=== PATIENT | male | born 1970 | race Caucasian/White ===

== ENCOUNTER 2017-06-28 08:46 | Emergency (ER) | payer OTHER ==
[2017-06-28 08:52] VITALS: TEMP 97.4
[2017-06-28] MEDS ORDERED: SODIUM CHLORIDE 0.9% 1,000 ML IV STA (08:59)
[2017-06-28] MEDS ORDERED: KETOROLAC 30 MG/ML 1 ML VIAL IVP STA (09:06)
--- NOTE | 2017-06-28 09:09 | ED ---
Abdominal Pain HPI - General Chief Complaint: Abdominal Pain Stated Complaint: URQ PAIN Time Seen by Provider: 06/28/17 08:59 Source: patient, RN notes reviewed Mode of arrival: ambulatory Limitations: no limitations - History of Present Illness Initial Comments: This a 47-year-old male presents emergency Department with complaints of right upper quadrant abdominal pain, epigastric pain. States over the last 3 days he has had worsening symptoms. He has been told by Dr. Chavez in the past that he has a bad gallbladder based on the HIDA scan. Patient patient states that he saw his primary care physician Dr. Rodriguez yesterday who scheduled for ultrasound, lab work. Patient states he cannot tolerate the symptoms any more so he decided to come to the emergency Department. Patient states that he's had no prior abdominal surgery. He does admit that he has an appointment tomorrow with Dr. Chavez. Patient denies any known fever, chills he's had some intermittent nausea and anorexia. Patient denies any diarrhea or constipation. Denies chest pain or shortness of breath. - Related Data Home Medications Medication Instructions Recorded Confirmed Acetaminophen [Tylenol 8 Hour] 1,300 mg PO Q8H PRN 06/28/17 06/28/17 Previous Rx's Medication Instructions Recorded Hydrocodone/Acetaminophen [[place] 1 tab PO Q6HR PRN #12 tab 06/28/17 5-325] Ondansetron Odt [Zofran Odt] 4 mg PO Q8HR PRN #10 tab 06/28/17 Allergies Allergy/AdvReac Type Severity Reaction Status Date / Time hay AdvReac Itching Uncoded 06/28/17 08:52 Review of Systems ROS Statement: Those systems with pertinent positive or pertinent negative responses have been documented in the HPI. ROS Other: All systems not noted in ROS Statement are negative. Past Medical History Past Medical History: No Reported History Additional Past Medical History / Comment(s): TORN MENISCUS RIGHT KNEE, gallbladder problems History of Any Multi-Drug Resistant Organisms: None Reported Past Surgical History: Orthopedic Surgery, Tonsillectomy Additional Past Surgical History / Comment(s): WISDOM TEETH. ARTHROSCOPY bilateral knees Past Anesthesia/Blood Transfusion Reactions: No Reported Reaction Past Psychological History: No Psychological Hx Reported Smoking Status: Never smoker Past Alcohol Use History: Occasional Past Drug Use History: None Reported General Exam Limitations: no limitations General appearance: alert, in no apparent distress Head exam: Present: atraumatic, normocephalic, normal inspection Eye exam: Present: normal appearance, PERRL, EOMI. Absent: scleral icterus, conjunctival injection, periorbital swelling ENT exam: Present: normal exam, normal oropharynx, mucous membranes moist Neck exam: Present: normal inspection. Absent: tenderness, meningismus, lymphadenopathy Respiratory exam: Present: normal lung sounds bilaterally. Absent: respiratory distress, wheezes, rales, rhonchi, stridor Cardiovascular Exam: Present: regular rate, normal rhythm, normal heart sounds. Absent: systolic murmur, diastolic murmur, rubs, gallop, clicks GI/Abdominal exam: Present: soft, tenderness (Right upper quadrant, epigastric tenderness moderate), normal bowel sounds. Absent: distended, guarding, rebound , rigid Back exam: Absent: CVA tenderness (R), CVA tenderness (L) Skin exam: Present: warm, dry, intact, normal color. Absent: rash Course Vital Signs 06/28/17 08:48 Temperature 97.4 F L Pulse Rate 75 Respiratory 18 Rate Blood Pressure 166/90 O2 Sat by Pulse 98 Oximetry - Reevaluation(s) Reevaluation #1: 06/28/17 11:14 Patient was updated and results states the pain is improved with Toradol. Medical Decision Making - Medical Decision Making 47-year-old male presents for lower quadrant abdominal pain. He has been told by his surgeon passive he has a dysfunctional gallbladder. Lab work and ultrasound was repeated today which was unremarkable. His pain is improved. Patient has also, appointment with Dr. Chavez. Patient will be treated with pain meds and nausea medication. - Lab Data Result diagrams: 06/28/17 09:00 06/28/17 09:00 Lab Results 06/28/17 06/28/17 06/28/17 Range/Units 09:00 09:00 09:00 WBC 10.5 (3.8-10.6) k/uL RBC 5.32 (4.30-5.90) m/uL Hgb 15.6 (13.0-17.5) gm/dL Hct 45.8 (39.0-53.0) % MCV 86.1 (80.0-100.0) fL MCH 29.3 (25.0-35.0) pg MCHC 34.1 (31.0-37.0) g/dL RDW 13.1 (11.5-15.5) % Plt Count 227 (150-450) k/uL Neutrophils % 79 % Lymphocytes % 12 % Monocytes % 6 % Eosinophils % 1 % Basophils % 0 % Neutrophils # 8.3 H (1.3-7.7) k/uL Lymphocytes # 1.3 (1.0-4.8) k/uL Monocytes # 0.7 (0-1.0) k/uL Eosinophils # 0.2 (0-0.7) k/uL Basophils # 0.0 (0-0.2) k/uL PT 9.8 (9.0-12.0) sec INR 1.0 (<1.2) APTT 23.7 (22.0-30.0) sec Sodium 143 (137-145) mmol/L Potassium 4.9 (3.5-5.1) mmol/L Chloride 102 (98-107) mmol/L Carbon Dioxide 30 (22-30) mmol/L Anion Gap 11 mmol/L BUN 12 (9-20) mg/dL Creatinine 0.87 (0.66-1.25) mg/dL Est GFR (CKD-EPI)AfAm >90 (>60 ml/min/1.73 sqM) Est GFR (CKD-EPI)NonAf >90 (>60 ml/min/1.73 sqM) Glucose 99 (74-99) mg/dL Calcium 9.3 (8.4-10.2) mg/dL Total Bilirubin 1.0 (0.2-1.3) mg/dL AST 34 (17-59) U/L ALT 57 (21-72) U/L Alkaline Phosphatase 94 (38-126) U/L Total Protein 7.4 (6.3-8.2) g/dL Albumin 4.5 (3.5-5.0) g/dL Amylase 40 (30-110) U/L Lipase 76 (23-300) U/L Urine Color Urine Appearance (Clear) Urine pH (5.0-8.0) Ur Specific [place] (1.001-1.035) Urine Protein (Negative) Urine Glucose (UA) (Negative) Urine Ketones (Negative) Urine Blood (Negative) Urine Nitrite (Negative) Urine Bilirubin (Negative) Urine Urobilinogen (<2.0) mg/dL Ur Leukocyte Esterase (Negative) 06/28/17 Range/Units 09:00 WBC (3.8-10.6) k/uL RBC (4.30-5.90) m/uL Hgb (13.0-17.5) gm/dL Hct (39.0-53.0) % MCV (80.0-100.0) fL MCH (25.0-35.0) pg MCHC (31.0-37.0) g/dL RDW (11.5-15.5) % Plt Count (150-450) k/uL Neutrophils % % Lymphocytes % % Monocytes % % Eosinophils % % Basophils % % Neutrophils # (1.3-7.7) k/uL Lymphocytes # (1.0-4.8) k/uL Monocytes # (0-1.0) k/uL Eosinophils # (0-0.7) k/uL Basophils # (0-0.2) k/uL PT (9.0-12.0) sec INR (<1.2) APTT (22.0-30.0) sec Sodium (137-145) mmol/L Potassium (3.5-5.1) mmol/L Chloride (98-107) mmol/L Carbon Dioxide (22-30) mmol/L Anion Gap mmol/L BUN (9-20) mg/dL Creatinine (0.66-1.25) mg/dL Est GFR (CKD-EPI)AfAm (>60 ml/min/1.73 sqM) Est GFR (CKD-EPI)NonAf (>60 ml/min/1.73 sqM) Glucose (74-99) mg/dL Calcium (8.4-10.2) mg/dL Total Bilirubin (0.2-1.3) mg/dL AST (17-59) U/L ALT (21-72) U/L Alkaline Phosphatase (38-126) U/L Total Protein (6.3-8.2) g/dL Albumin (3.5-5.0) g/dL Amylase (30-110) U/L Lipase (23-300) U/L Urine Color Yellow Urine Appearance Clear (Clear) Urine pH 7.5 (5.0-8.0) Ur Specific [place] 1.024 (1.001-1.035) Urine Protein Trace H (Negative) Urine Glucose (UA) Negative (Negative) Urine Ketones Negative (Negative) Urine Blood Negative (Negative) Urine Nitrite Negative (Negative) Urine Bilirubin Negative (Negative) Urine Urobilinogen <2.0 (<2.0) mg/dL Ur Leukocyte Esterase Negative (Negative) Disposition Clinical Impression: Abdominal pain, Biliary colic symptom Disposition: HOME SELF-CARE Condition: Stable Instructions: Abdominal Pain (ED) Additional Instructions: Please return to the Emergency Department if symptoms worsen or any other concerns. Prescriptions: Hydrocodone/Acetaminophen [[place] 5-325] 1 tab PO Q6HR PRN #12 tab PRN Reason: Pain Ondansetron Odt [Zofran Odt] 4 mg PO Q8HR PRN #10 tab PRN Reason: Nausea Is patient prescribed a controlled substance at d/c from ED?: Yes If prescribed controlled substance>3 days was MAPS reviewed?: No When asked, does pt state using other controlled substances?: No Referrals: Zackery Rodriguez DO [Primary Care Provider] - 1-2 days Time of Disposition: 11:16
[2017-06-28 09:23] LABS: Basophils % (A) 0 %; Eosinophils # (A) 0.2 k/uL (0-0.7); Eosinophils % (A) 1 %; HCT 45.8 % (39.0-53.0); HGB 15.6 gm/dL (13.0-17.5); Lymphocytes # (A) 1.3 k/uL (1.0-4.8); Lymphocytes % (A) 12 %; MCH 29.3 pg (25.0-35.0); MCHC 34.1 g/dL (31.0-37.0); MCV 86.1 fL (80.0-100.0); Mean Platelet Volume 7.9; Monocytes # (A) 0.7 k/uL (0-1.0); Monocytes % (A) 6 %; Neutrophils # (A) 8.3 k/uL (1.3-7.7); Neutrophils % (A) 79 %; Platelet Count 227 k/uL (150-450); RBC 5.32 m/uL (4.30-5.90); RDW 13.1 % (11.5-15.5); WBC 10.5 k/uL (3.8-10.6)
[2017-06-28 09:32] LABS: ALT 57 U/L (21-72); AST 34 U/L (17-59); Albumin 4.5 g/dL (3.5-5.0); Alkaline Phosphatase 94 U/L (38-126); Amylase 40 U/L (30-110); Anion Gap 11 mmol/L; Blood Urea Nitrogen 12 mg/dL (9-20); Calcium 9.3 mg/dL (8.4-10.2); Carbon Dioxide 30 mmol/L (22-30); Chloride 102 mmol/L (98-107); Glucose 99 mg/dL (74-99); Lipase 76 U/L (23-300); Potassium 4.9 mmol/L (3.5-5.1); Sodium 143 mmol/L (137-145); Total Protein 7.4 g/dL (6.3-8.2)
[2017-06-28 09:41] LABS: Partial Thromboplastin Time 23.7 sec (22.0-30.0); Prothrombin Time 9.8 sec (9.0-12.0)
[2017-06-28 10:22] LABS: Appearance,Urine Clear (Clear); Bilirubin,Urine Negative (Negative); Blood,Urine Negative (Negative); Color,Urine Yellow; Glucose,Urine (UA) Negative (Negative); Ketones,Urine Negative (Negative); Leukocyte Esterase,Urine Negative (Negative); Nitrite,Urine Negative (Negative); PH, Urine 7.5 (5.0-8.0); Protein,Urine Trace (Negative); Specific Gravity,Urine 1.024 (1.001-1.035); Urobilinogen,Urine <2.0 mg/dL (<2.0)
--- NOTE | 2017-06-28 11:05 | US ---
EXAMINATION TYPE: US gallbladder DATE OF EXAM: 06/28/2017 COMPARISON: 08/11/2015 CLINICAL HISTORY: Pain; EC patient with severe epigastric pain x 2 days; ate Tacos for dinner last ni ght; low ejection fraction per NM study 2016. EXAM MEASUREMENTS: Liver Length: 15.6 cm Gallbladder Wall: 0.2 cm CBD: 0.6 cm Right Kidney: 9.2 x 5.5 x 4.1 cm Pancreas: Obscured by bowel gas Liver: no masses seen, decreased visualization due to overlying bowel gas Gallbladder: wnl Evidence for sonographic Sauceda's sign: Yes CBD: wnl Right Kidney: No hydronephrosis or masses seen IMPRESSION: Somewhat Limited exam demonstrates no diagnostic evidence of gallstones or gallbladder wa ll thickening.
[2017-06-28 12:04] VITALS: BP 119/56; PULSE 66; RESP 16
== END 2017-06-28 12:04 | disposition home or self-care (01) ==
LOC: EC 08:46
DX: R10.11 Right upper quadrant pain (principal); R10.13 Epigastric pain; R11.0 Nausea; Z91.09 Other allergy status, other than to drugs and biological substances
CPT/HCPCS: 99284; 96374; 96361; 36415; 80053; 82150; 83690; 85025; 85610; 85730; 81003; 76705; J1885

== ENCOUNTER 2017-06-30 10:41 | Day surgery (SDC) | payer OTHER ==
[2017-06-30] MEDS ORDERED: LACTATED RINGERS 1,000 ML IV SCH (11:21)
[2017-06-30 11:25] VITALS: TEMP 98.3
[2017-06-30] MEDS ORDERED: PROPOFOL 10 MG/ML 20 ML VIAL IV ONE (11:41)
[2017-06-30] MEDS ORDERED: LIDOCAINE 1% 20 ML VIAL (10MG/ML) FOR IV START INTRADERMA ONE (11:41)
[2017-06-30] MEDS ORDERED: LIDOCAINE 1% INJ 10MG/ML (20 ML MDV) ONE (11:41)
--- NOTE | 2017-06-30 11:44 | P.GSHP ---
History of Present Illness H&P Date: 06/30/17 Chief Complaint: Epigastric and right upper quadrant pain This a 47-year-old male who's had complaints of epigastric quadrant pain. He presents today for EGD to evaluate for gastritis. Past Medical History Past Medical History: No Reported History Additional Past Medical History / Comment(s): TORN MENISCUS RIGHT KNEE, gallbladder problems History of Any Multi-Drug Resistant Organisms: None Reported Past Surgical History: Orthopedic Surgery, Tonsillectomy Additional Past Surgical History / Comment(s): WISDOM TEETH. ARTHROSCOPY bilateral knees Past Anesthesia/Blood Transfusion Reactions: No Reported Reaction Past Psychological History: No Psychological Hx Reported Smoking Status: Never smoker Past Alcohol Use History: Occasional Past Drug Use History: None Reported Medications and Allergies Home Medications Medication Instructions Recorded Confirmed Type Hydrocodone/Acetaminophen [[place] 1 tab PO Q6HR PRN #12 tab 06/28/17 06/30/17 Rx 5-325] Ondansetron Odt [Zofran Odt] 4 mg PO Q8HR PRN #10 tab 06/28/17 06/30/17 Rx Allergies Allergy/AdvReac Type Severity Reaction Status Date / Time hay AdvReac Itching Uncoded 06/30/17 11:24 Surgical - Exam Vital Signs Temp Pulse Resp BP Pulse Ox 98.3 F 74 16 147/77 98 06/30/17 11:22 06/30/17 11:22 06/30/17 11:22 06/30/17 11:22 06/30/17 11:22 - General well developed, no distress - Eyes PERRL - ENT normal pinna - Neck no masses - Respiratory normal expansion - Cardiovascular Rhythm: regular - Abdomen Epigastric pain Abdomen: soft Assessment and Plan Assessment: Epigastric pain. We'll perform EGD.
--- NOTE | 2017-06-30 11:51 | P.OP ---
Date of Procedure: 06/30/17 Preoperative Diagnosis: GERD Postoperative Diagnosis: Antral gastritis Hiatal hernia Esophagitis Procedure(s) Performed: EGD Anesthesia: MAC Surgeon: Marcin Chavez Pathology: other (Antrum, esophagus) Condition: stable Disposition: PACU Description of Procedure: The patient's placed on the endoscopy table in the lateral position. He received IV sedation. The gastric was placed oropharynx passed in the esophagus and into the stomach. Scope was then placed through the pylorus. The first and second portion of the duodenum appeared normal. Scope was then brought back the antrum this is mildly inflamed and a biopsies was performed. The scope was then retroflexed and remainder the stomach appeared normal. There was a moderate size hiatal hernia. The GE junction was at 40 cm. The distal esophagus was mildly inflamed and a biopsies performed. The proximal esophagus appeared normal. Scope was withdrawn for patient.
[2017-06-30 12:02] VITALS: RESP 18
[2017-06-30 12:34] VITALS: BP 127/83; PULSE 72
== END 2017-06-30 12:53 | disposition home or self-care (01) ==
LOC: ORWHC2ENDO 10:41
PROVIDERS: ATTEND Surgery
DX: K29.50 Unspecified chronic gastritis without bleeding (principal); K21.0 Gastro-esophageal reflux disease with esophagitis; K44.9 Diaphragmatic hernia without obstruction or gangrene
CPT/HCPCS: 88305; 43239; J2001; J2704

== ENCOUNTER 2017-07-03 07:47 | Day surgery (SDC) | payer OTHER ==
[2017-06-30 11:50] VITALS: BMI 29.7
[~2017-07-03 07:47] MED LIST: HEPARIN SODIUM,PORCINE 5,000 UNIT/ML 1 ML VIAL SQ ONE
[2017-07-03] MEDS ORDERED: BUPIVACAINE (PF) 0.25% 30 ML VIAL SQ ONE ×2 (08:16→09:26)
[2017-07-03] MEDS: ceFAZolin IN SWFI 2 GM/20 ML SYRINGE IVP ONE ×2 (08:16→09:20)
[2017-07-03] MEDS ORDERED: LACTATED RINGERS 1,000 ML IV ONE ×3 (08:16→11:00)
[2017-07-03] MEDS ORDERED: HYDROmorphone 0.5 MG/0.5 ML SYRINGE IVP PRN (08:36)
[2017-07-03] MEDS ORDERED: DEXAMETHASONE SOD PHOSPHATE 10 MG/ML 1 ML VIAL IV ONE (08:36)
[2017-07-03] MEDS ORDERED: LIDOCAINE 1% 20 ML VIAL (10MG/ML) FOR IV START INTRADERMA PRN (08:36)
[2017-07-03] MEDS ORDERED: MORPHINE SULFATE 2 MG/ML SYRINGE IV PRN (08:36)
[2017-07-03] MEDS ORDERED: SCOPOLAMINE 1.5MG/72HR PATCH TRANSDERM ONE (08:36)
[2017-07-03] MEDS ORDERED: ONDANSETRON ODT 4 MG TAB PO ONE (08:36)
[2017-07-03] MEDS ORDERED: MIDAZOLAM 2 MG/2 ML VIAL IV PRN (08:36)
[2017-07-03] MEDS ORDERED: LACTATED RINGERS 1,000 ML IV SCH (08:45)
--- NOTE | 2017-07-03 08:45 | P.GSHP ---
History of Present Illness H&P Date: 07/03/17 Chief Complaint: Right upper quadrant pain This is a 47-year-old male referred from Dr. Rodriguez. Patient's complaints of right upper quadrant pain. His recent HIDA scan showed abnormal ejection fraction consistent with chronic cholecystitis. He presents today for laparoscopic cholecystectomy. Past Medical History Past Medical History: No Reported History Additional Past Medical History / Comment(s): TORN MENISCUS RIGHT KNEE, gallbladder problems History of Any Multi-Drug Resistant Organisms: None Reported Past Surgical History: Orthopedic Surgery, Tonsillectomy Additional Past Surgical History / Comment(s): WISDOM TEETH. ARTHROSCOPY bilateral knees Past Anesthesia/Blood Transfusion Reactions: No Reported Reaction Additional Past Anesthesia/Blood Transfusion Reaction / Comment(s): PTS MOTHER= CONFUSION WITH ANESTHESIA Past Psychological History: No Psychological Hx Reported Smoking Status: Never smoker Past Alcohol Use History: Occasional Past Drug Use History: None Reported - Past Family History Mother Family Medical History: No Reported History Medications and Allergies Home Medications Medication Instructions Recorded Confirmed Type Hydrocodone/Acetaminophen [[place] 1 tab PO Q6HR PRN #12 tab 06/28/17 07/03/17 Rx 5-325] Ondansetron Odt [Zofran Odt] 4 mg PO Q8HR PRN #10 tab 06/28/17 07/03/17 Rx Losartan [Cozaar] 50 mg PO DAILY 06/30/17 07/03/17 History Allergies Allergy/AdvReac Type Severity Reaction Status Date / Time hay AdvReac Itching Uncoded 07/03/17 08:27 Surgical - Exam Vital Signs Temp Pulse BP Pulse Ox 97.8 F 60 134/78 98 07/03/17 08:28 07/03/17 08:28 07/03/17 08:28 07/03/17 08:28 - General well developed, no distress - Eyes PERRL - ENT normal pinna - Neck no masses - Respiratory normal expansion - Cardiovascular Rhythm: regular - Abdomen Abdomen: soft, non tender Assessment and Plan Assessment: Chronic cholecystitis. We'll perform laparoscopic cholecystectomy
[2017-07-03] MEDS ORDERED: ONDANSETRON 4 MG/2 ML VIAL IVP ONE ×2 (08:47→10:13)
[2017-07-03] MEDS ORDERED: fentaNYL (PF) 50 MCG/ML 2 ML AMP ONE (09:07)
[2017-07-03] MEDS ORDERED: SUCCINYLCHOLINE CHLORIDE 100 MG/5 ML SYR IV ONE (09:07)
[2017-07-03] MEDS ORDERED: MIDAZOLAM 2 MG/2 ML VIAL ONE (09:07)
[2017-07-03] MEDS ORDERED: ROCURONIUM BROMIDE 10 MG/ML 10 ML VIAL IV ONE (09:07)
[2017-07-03] MEDS ORDERED: GLYCOPYRROLATE 0.2 MG/ML 2 ML VIAL ONE (09:07)
[2017-07-03] MEDS ORDERED: LIDOCAINE 1% INJ 10MG/ML (20 ML MDV) ONE (09:07)
[2017-07-03] MEDS ORDERED: PROPOFOL 10 MG/ML 20 ML VIAL IV ONE (09:07)
[2017-07-03] MEDS ORDERED: NEOSTIGMINE 1 MG/ML 10 ML VIAL ONE (09:07)
[2017-07-03 10:06] VITALS: TEMP 97.2
[2017-07-03] MEDS ORDERED: MORPHINE SULFATE 4 MG/0.8 ML SYRINGE (INJ) IVP ONE (10:14)
[2017-07-03] MEDS ORDERED: fentaNYL (PF) 50 MCG/ML 2 ML AMP IVP ONE ×2 (10:20→10:27)
[2017-07-03] MEDS ORDERED: diphenhydrAMINE 50 MG/ML 1 ML VIAL IVP ONE ×2 (10:28→11:26)
--- NOTE | 2017-07-03 10:33 | P.OP ---
Date of Procedure: 07/03/17 Preoperative Diagnosis: Chronic cholecystitis Postoperative Diagnosis: Chronic cholecystitis Omental infarct Procedure(s) Performed: Laparoscopic cholecystectomy Partial omentectomy Anesthesia: ELIANA Surgeon: Marcin Chavez Estimated Blood Loss (ml): 5 Pathology: other (Gallbladder, omentum) Condition: stable Disposition: PACU Description of Procedure: The patient was placed on the operating table. The patient received a general endotracheal tube anesthesia. The patients abdomen was prepped and draped in the usual sterile fashion. Through an infraumbilical stab incision, the fascia of the anterior abdominal wall was grasped with a pair of Kochers and then the Veress needle was placed in the peritoneal cavity. Position of the Veress needle was confirmed with positive drop test. The abdomen was then insufflated. After adequate insufflation, the 10 mm trocar was placed in the peritoneal cavity. Following this the laparoscope was placed in the peritoneal cavity. The patient was placed in the head-up, right side up position and then a 5 mm trocar was placed in the right lateral and right subcostal position under direct visualization. A 8 mm trocar was placed in the epigastric position. There was a portion of omentum which appeared to be twisted and nonviable and stomach to the falciform ligament. This was dissected with the Harmonic scissors and transected. The omentum was then placed in Endo Catch and brought out through the epigastric port site. The gallbladder was grasped in the fundus and infundibulum. Traction on the gallbladder was placed in the lateral and the cephalad positions. The triangle of Calot was visualized.. The cystic duct was bluntly dissected until the union of the cystic duct and common bile duct was seen. The cystic duct was then divided and sealed with the Harmonic scissors. A PDS Endoloop was then placed throughout the cystic duct stump. The cystic artery divided and sealed with the Harmonic scissors. The gallbladder was then removed from the liver bed using Harmonic scissors. The gallbladder was then extracted through the epigastric port site. Operative field was checked for any bleeding spots and Harmonic scissors was used to coagulate the liver bed. The abdomen was irrigated. The trocars were removed. The skin was closed using interrupted 3- 0 Vicryl suture. Dermabond dressing were applied. The patient tolerated the procedure well.
[2017-07-03] MEDS ORDERED: HYDROcodone/APAP 5-325MG 1 EACH TAB PO ONE ×2 (12:12→12:15)
[2017-07-03 12:15] VITALS: RESP 16
[2017-07-03 12:51] VITALS: BP 150/83; PULSE 100
== END 2017-07-03 13:00 | disposition home or self-care (01) ==
LOC: OR 07:47
PROVIDERS: ATTEND Surgery
DX: K81.1 Chronic cholecystitis (principal); K82.8 Other specified diseases of gallbladder; K65.4 Sclerosing mesenteritis; I10 Essential (primary) hypertension; Z79.899 Other long term (current) drug therapy
CPT/HCPCS: 88304; 88305; 47562; J2250; J1200; J1644; J1100; J2710; J2405; J2001; J3010; J0330; J2704; J0690; J2270

== ENCOUNTER 2019-11-12 08:04 | Day surgery (SDC) | payer OTHER ==
[2019-11-07 15:51] VITALS: BMI 31.4
[~2019-11-12 08:04] MED LIST changes: -HEPARIN SODIUM,PORCINE 5,000 UNIT/ML 1 ML VIAL SQ ONE; +LACTATED RINGERS 1,000 ML IV SCH; +LIDOCAINE 1% (10MG/ML) FOR IV START INTRADERMA PRN
[2019-11-12 08:29] VITALS: RESP 16; TEMP 98.2
[2019-11-12] MEDS ORDERED: fentaNYL (PF) 50 MCG/ML 2 ML AMP ONE (08:40)
[2019-11-12] MEDS ORDERED: MIDAZOLAM 2 MG/2 ML VIAL ONE (08:40)
[2019-11-12] MEDS ORDERED: PROPOFOL 10 MG/ML 20 ML VIAL IV ONE (08:40)
--- NOTE | 2019-11-12 08:42 | P.GSHP ---
History of Present Illness H&P Date: 11/12/19 Chief Complaint: Colon cancer screening Patient here today for colonoscopy. Last colonoscopy 10 years ago. No complaints. No family history of colon cancer. Past Medical History Past Medical History: Hypertension Additional Past Medical History / Comment(s): hiatal hernia, History of Any Multi-Drug Resistant Organisms: None Reported Past Surgical History: Cholecystectomy, Orthopedic Surgery, Tonsillectomy Additional Past Surgical History / Comment(s): WISDOM TEETH. ARTHROSCOPY bilateral knees Past Anesthesia/Blood Transfusion Reactions: No Reported Reaction Smoking Status: Never smoker - Past Family History Mother Family Medical History: No Reported History Medications and Allergies Home Medications Medication Instructions Recorded Confirmed Type Losartan Potassium 100 mg PO QAM 11/07/19 11/12/19 History Tadalafil [Cialis] 20 mg PO DIRECTED PRN 11/07/19 11/12/19 History Allergies Allergy/AdvReac Type Severity Reaction Status Date / Time hay AdvReac Itching Uncoded 11/12/19 08:27 Surgical - Exam Vital Signs Temp Pulse Resp BP Pulse Ox 98.2 F 67 16 152/84 98 11/12/19 08:24 11/12/19 08:24 11/12/19 08:24 11/12/19 08:24 11/12/19 08:24 Physical exam: General: Well-developed, well-nourished HEENT: Normocephalic, sclerae nonicteric Abdomen: Nontender, nondistended Extremities: No edema Neuro: Alert and oriented Assessment and Plan (1) Colon cancer screening Narrative/Plan: Will proceed with colonoscopy at this time Current Visit: Yes Status: Acute Code(s): Z12.11 - ENCOUNTER FOR SCREENING FOR MALIGNANT NEOPLASM OF COLON SNOMED Code(s): 082464007
--- NOTE | 2019-11-12 08:55 | P.PCN ---
Date of Procedure: 11/12/19 Procedure(s) Performed: PREOPERATIVE DIAGNOSIS: Colon cancer screening POSTOPERATIVE DIAGNOSIS: Diverticulosis PROCEDURE: Colonoscopy ANESTHESIA: MAC SURGEON: Munir Aleman M.D. SPECIMENS: None ENDOSCOPIC PROCEDURE: The patient was placed on the endoscopy table in the left decubitus position. The Olympus colonoscope was inserted into the anus and passed under direct visualization to the base of the cecum. The appendiceal orifice was visualized. From that point the scope was slowly withdrawn inspe cting all surfaces carefully. There were no neoplastic inflammatory or polypoid lesions throughout the cecum, ascending, transverse, descending, sigmoid and rectum. There was mild left-sided diverticulosis noted. Digital rectal examination was normal. The patient was taken to the recovery room in stable condition per anesthesia guidelines. RECOMMENDATIONS: Increase fiber. Follow-up colonoscopy in 10 years.
[2019-11-12 09:19] VITALS: BP 132/84; PULSE 69
== END 2019-11-12 09:34 | disposition home or self-care (01) ==
LOC: ORWHC2ENDO 08:04
PROVIDERS: ATTEND Surgery
DX: Z12.11 Encounter for screening for malignant neoplasm of colon (principal); K57.30 Diverticulosis of large intestine without perforation or abscess without bleeding; I10 Essential (primary) hypertension; K44.9 Diaphragmatic hernia without obstruction or gangrene; Z90.49 Acquired absence of other specified parts of digestive tract; Z98.890 Other specified postprocedural states; Z90.89 Acquired absence of other organs; Z79.899 Other long term (current) drug therapy; Z91.09 Other allergy status, other than to drugs and biological substances
CPT/HCPCS: J2250; J3010; J2704; G0121

== ENCOUNTER → 2020-09-22 | Outpatient (CLI) | payer OTHER ==
--- NOTE | 2020-09-22 12:35 | XR ---
EXAMINATION TYPE: XR chest 2V DATE OF EXAM: 09/22/2020 COMPARISON: None INDICATION: Rib contusion right side TECHNIQUE: Frontal and lateral views of the chest are obtained. FINDINGS: The heart size is normal. The pulmonary vasculature is normal. The lungs are clear. No acute displaced fractures are evident. No pneumothorax is evident. IMPRESSION: 1. No acute pulmonary process. 2. No obvious rib abnormalities
== END | disposition home or self-care (01) ==
LOC: RADXRMAIN 12:03
PROVIDERS: ATTEND Family Medicine
DX: S20.211A Contusion of right front wall of thorax, initial encounter (principal)
CPT/HCPCS: 71046

== ENCOUNTER → 2020-12-15 | Outpatient (CLI) | payer OTHER ==
[2020-12-15 16:06] LABS: Basophils # (A) 0.1 k/uL (0-0.2); Basophils % (A) 1 %; Eosinophils # (A) 0.2 k/uL (0-0.7); Eosinophils % (A) 2 %; HCT 46.1 % (39.0-53.0); HGB 15.4 gm/dL (13.0-17.5); Lymphocytes # (A) 1.9 k/uL (1.0-4.8); Lymphocytes % (A) 19 %; MCH 29.7 pg (25.0-35.0); MCHC 33.3 g/dL (31.0-37.0); MCV 89.2 fL (80.0-100.0); Mean Platelet Volume 8.7; Monocytes # (A) 0.5 k/uL (0-1.0); Monocytes % (A) 5 %; Neutrophils # (A) 7.3 k/uL (1.3-7.7); Neutrophils % (A) 73 %; Platelet Count 224 k/uL (150-450); RBC 5.17 m/uL (4.30-5.90); RDW 12.5 % (11.5-15.5)
[2020-12-15 16:11] LABS: Prothrombin Time 10.8 sec (9.0-12.0)
[2020-12-15 16:14] LABS: Potassium 4.6 mmol/L (3.5-5.1)
== END | disposition home or self-care (01) ==
LOC: LABPAT 14:52
PROVIDERS: ATTEND Orthopaedic Surgery
DX: Z01.818 Encounter for other preprocedural examination (principal); M17.12 Unilateral primary osteoarthritis, left knee; Z22.322 Carrier or suspected carrier of Methicillin resistant Staphylococcus aureus
CPT/HCPCS: 36415; 80051; 85025; 85610; 93005

== ENCOUNTER → 2020-12-31 | Outpatient (CLI) | payer OTHER | END | disposition home or self-care (01) | LOC: LABPAT 14:41 | PROVIDERS: ATTEND Orthopaedic Surgery | DX: Z01.812 Encounter for preprocedural laboratory examination (principal); M17.12 Unilateral primary osteoarthritis, left knee | CPT/HCPCS: 87070 ==

== ENCOUNTER 2021-01-04 05:58 | Day surgery (SDC) | payer OTHER ==
[2020-12-31 10:52] VITALS: BMI 30.7
--- NOTE | 2021-01-03 16:44 | HP ---
HISTORY AND PHYSICAL DATE OF SURGERY: 01/04/2021 Claus Gomez is a 50-year-old gentleman seen with symptomatic left knee osteoarthritis, failing conservative treatment measures. After options were discussed, he elected to proceed with left total knee arthroplasty. Consent regarding the procedure was obtained. PAST MEDICAL HISTORY: Hypertension. PAST SURGICAL HISTORY: Left knee arthroscopy. DAILY MEDICATIONS: Losartan, Naprosyn. ALLERGIES: NONE. SOCIAL HISTORY: He denies tobacco use. PHYSICAL EVALUATION OF THE LEFT KNEE: His range of motion is negative 1/2 to 120 degrees. There is a mild effusion. Tenderness along the medial joint line. Crepitus along the medial patellofemoral compartments with range of motion. Pain with patellofemoral compression. Ligaments stable. Hip rotation without pain. Distal neurovascular exam is intact. RADIOGRAPHS: Radiographs of the left knee reveal severe osteoarthritic changes. IMPRESSION: 1. Left knee osteoarthritis. 2. Hypertension. PLAN: Left total knee arthroplasty. MMODL / IJN: [id number] /
[~2021-01-04 05:58] MED LIST changes: +ACETAMINOPHEN TAB 500 MG TAB PO PRN; -LACTATED RINGERS 1,000 ML IV SCH; -LIDOCAINE 1% (10MG/ML) FOR IV START INTRADERMA PRN; +MELOXICAM 7.5 MG TAB PO PRN; +TRANEXAMIC ACID 1,000 MG in SODIUM CHLORIDE 0.9% 100 ML IVPB PRN
[2021-01-04] MEDS ORDERED: MIDAZOLAM 2 MG/2 ML VIAL IV PRN (06:09)
[2021-01-04] MEDS ORDERED: ONDANSETRON 4 MG/2 ML VIAL IVP ONE ×2 (06:09)
[2021-01-04] MEDS ORDERED: LACTATED RINGERS 1,000 ML IV SCH (06:09)
[2021-01-04] MEDS ORDERED: DEXAMETHASONE SOD PHOSPHATE 4 MG/ML 1 ML VIAL IV ONE ×2 (06:09)
[2021-01-04] MEDS ORDERED: LIDOCAINE 1% (10MG/ML) FOR IV START INTRADERMA PRN (06:09)
[2021-01-04] MEDS ORDERED: MIDAZOLAM 2 MG/2 ML VIAL IVP ONE (07:16)
[2021-01-04] MEDS ORDERED: fentaNYL (PF) 50 MCG/ML 2 ML AMP IVP ONE (07:16)
[2021-01-04] MEDS ORDERED: PROPOFOL 10 MG/ML 20 ML VIAL IV ONE (07:38)
[2021-01-04] MEDS ORDERED: SODIUM CHLORIDE 0.9% (PF) 10 ML VIAL ONE (07:38)
[2021-01-04] MEDS ORDERED: HYDROmorphone (PF) 1 MG/ML ONE (07:38)
[2021-01-04] MEDS ORDERED: TRANEXAMIC ACID 1,000 MG/10 ML VIAL ONE (07:38)
[2021-01-04] MEDS ORDERED: ROPIVACAINE 5 MG/ML 30 ML VIAL ONE (07:38)
[2021-01-04] MEDS ORDERED: MIDAZOLAM 2 MG/2 ML VIAL ONE (07:38)
[2021-01-04] MEDS ORDERED: SODIUM CHLORIDE 0.9% 100 ML BAG ONE (07:38)
[2021-01-04] MEDS ORDERED: ROCURONIUM 10 MG/ML (5 ML VIAL) IV ONE (07:38)
[2021-01-04] MEDS ORDERED: KETOROLAC 15 MG/ML 1 ML VIAL ONE (07:38)
[2021-01-04] MEDS ORDERED: fentaNYL (PF) 50 MCG/ML 2 ML AMP ONE (07:38)
[2021-01-04] MEDS ORDERED: ceFAZolin 1,000 MG in SODIUM CHLORIDE 0.9% 1,000 ML IRRIGATION ONE (08:13)
[2021-01-04] MEDS ORDERED: HYDROcodone/APAP 5-325MG 1 EACH TAB PO PRN (09:21)
[2021-01-04] MEDS ORDERED: ONDANSETRON 4 MG/2 ML VIAL IVP PRN (09:21)
[2021-01-04] MEDS ORDERED: NALOXONE 0.4 MG/ML 1 ML VIAL IV PRN (09:21)
[2021-01-04] MEDS ORDERED: HYDROmorphone 0.2 MG/1 ML SYRINGE IVP PRN (09:21)
[2021-01-04] MEDS ORDERED: LACTATED RINGERS 1,000 ML IV ONE ×2 (09:21→09:22)
[2021-01-04] MEDS ORDERED: HYDROmorphone 1 MG/ML 1 ML SYRINGE IVP PRN (09:21)
[2021-01-04] MEDS ORDERED: HYDROmorphone 0.5 MG/0.5 ML SYRINGE IVP PRN (09:21)
[2021-01-04] MEDS ORDERED: HYDROcodone/APAP 7.5-325MG 1 EACH TAB PO PRN (09:21)
--- NOTE | 2021-01-04 09:21 | P.OP ---
Date of Procedure: 01/04/21 Preoperative Diagnosis: Left knee osteoarthritis Postoperative Diagnosis: Left knee osteoarthritis Procedure(s) Performed: Left total knee arthroplasty Implants: 1. Depuy attune size 7 left cruciate-retaining cemented femur 2. Depuy attune size 7 fixed bearing cemented tibial baseplate 3. Depuy attune size 7 fixed bearing cruciate retaining 10 mm polyethylene tibial insert 4. Depuy attune 38 mm all polyethylene cemented patella Anesthesia: GETA, regional (Adductor canal catheter, Ipack block) Surgeon: Mick Toure Shelter Director #1: Duran Gomez Estimated Blood Loss (ml): 45 Pathology: other (Bone) Condition: stable Disposition: PACU Indications for Procedure: 50-year-old patient seen with symptomatic left knee osteoarthritis, after treatment options were discussed he elected to proceed with total knee arthroplasty. Operative Findings: See description of procedure Description of Procedure: Patient was taken to the operative suite after having an adductor canal catheter placed by the department of anesthesia as well as an ipack block for postoperative pain management. Patient underwent a general anesthetic by the department of anesthesia. Patient was given preoperative IV intake antibiotics and TXA. A well-padded tourniquet was placed about the left lower extremity. The lower extremity was then prepped and draped in the normal sterile orthopedic fashion. The extremity was elevated, a tourniquet was insufflated to 300. A standard anterior incision was made sharply through skin. Dissection was taken down through the subcutaneous soft tissues down to the extensor mechanism. A medial arthrotomy was performed, patella was everted and knee was flexed. There was advanced osteoarthritis noted. I introduced my distal intramedullary femoral drill. I then introduced the distal femoral cutting jig. Duran POSADA secured the cutting jig with 2 pins. I held retractors in position while Duran POSADA performed the distal femoral resection through the guide area we now removed her distal femoral cutting guide. We now placed our 4-in-1 femoral cutting block and positioned and it was secured with 2 pins by Duran POSADA while I held the block in position. The distal femoral finishing was now completed. A proximal tibial cutting guide was positioned. I held the guide in the appropriate position with both hands while Duran POSADA inserted stabilizing pins into the guide. Proximal tibial cut was made. We now placed a trial femoral component into position, along with an appropriate size tibial tray and insert. We now took the knee through range of motion and had full extension good flexion and good overall soft tissue balance noted. The patella was everted and stabilized with 2 towel clips held by Duran POSADA while I p erformed a flush with patellar quad tendon utilizing a fresh sawblade. We templated the patella, appropriate drill holes were made. An appropriate trial patella was positioned, knee was taken through full range of motion with the patella tracking very nicely. The trial patella was removed. Drill holes were made through the femoral component. All trial components were removed after marking off the appropriate rotation of the tibia. Retractors were now positioned along the proximal tibia. An appropriate keel punch was made with the appropriate size tibial guide by myself on Duran POSADA assisted by holding retractors. At this point appropriate size implants were chosen and opened. The joint was irrigated copiously with pulse lavage mechanical irrigation. The posterior capsule was infiltrated with local analgesic. The wound was irrigated with pulse lavage mechanical irrigation. We mixed antibiotic methylmethacrylate. We placed the knee into flexion. We placed multiple retractors assisted by Duran POSADA to expose the proximal tibia. Once the methyl methacrylate was ready, the tibial component was cemented into place removing any excess methylmethacrylate form by both myself and Duran POSADA. The femoral component was cemented into place removing the removing any excess methylmethacrylate performed by both myself and Duran POSADA. We then inserted the appropriate size polyethylene tibial insert. We made sure that it was locked into position. We took the knee into full extension, and then back in a flexion making sure we had removed any excess methylmethacrylate. The patellar component was then cemented down and secured with clamp. Excess methylmethacrylate removed. We kept the knee in full extension, patellar clamp in position until methylmethacrylate had hardened. Once it had hardened the patellar clamp was removed. The knee was taken through full range of motion. The patella tracked nicely. There was good soft tissue balancing. The t ourniquet was now released. Additional hemostasis was achieved via electrocautery. A second gram of TXA was given. The wound again was irrigated with pulse lavage mechanical irrigation. The superficial soft tissues were infiltrated local analgesic. The extensor mechanism was repaired with Vicryl. We checked the repair with range of motion and it was stable. The subcutaneous soft tissues were repaired with Vicryl in layers. The skin was approximated with pernio/Dermabond. Sterile dressings were applied followed by loose web roll and Braden bandage. The patient was transferred to a bed, and taken to recovery in stable and satisfactory condition. Duran POSADA assisted with this complex procedure.
[2021-01-04] MEDS: HYDROmorphone 0.5 MG/0.5 ML SYRINGE IVP PRN ×4 (09:50→12:47)
--- NOTE | 2021-01-04 09:55 | P.ANPRN ---
Procedure Note - Anesthesia - Nerve Block Performed Left Adductor Canal Infusion Time Out Performed: Yes Date of Procedure: 01/04/21 Procedure Start Time: 07:10 Procedure Stop Time: :23 Location of Patient: PreOp Indication: Acute Post-Operative Pain, Dx/Pain Location, Requested by Surgeon Specifically requested for management of pain by : Mick Toure Sedation Type: Sedate with meaningful contact maintained Preparation: Sterile Prep, Sterile Dressing Position: Supine Catheter Depth at Skin (cm): 6 Catheter: None Needle Types: Pajunk Needle Gauge: 18 Ultrasound used to visualize needle placement: Yes Ultrasound used to observe medication spread: Yes Injectate: 0.5% Ropivacaine (see comment for volume) Blood Aspirated: No Pain Paresthesia on Injection Noted: No Resistance on Injection: Normal Image Stored and Saved: Yes Events: Uneventful and Well Tolerated (20cc 0.5% ropivacaine)
--- NOTE | 2021-01-04 09:56 | P.ANPRN ---
Procedure Note - Anesthesia - Nerve Block Performed Left iPack Single Time Out Performed: Yes Date of Procedure: 01/04/21 Procedure Start Time: 07:24 Procedure Stop Time: :28 Location of Patient: PreOp Indication: Acute Post-Operative Pain, Dx/Pain Location, Requested by Surgeon Specifically requested for management of pain by : Mick Toure Sedation Type: Sedate with meaningful contact maintained Preparation: Sterile Prep Position: Supine Catheter: None Needle Types: Facet Needle Gauge: 21 Ultrasound used to visualize needle placement: Yes Ultrasound used to observe medication spread: Yes Injectate: 0.5% Ropivacaine (see comment for volume) Blood Aspirated: No Pain Paresthesia on Injection Noted: No Resistance on Injection: Normal Image Stored and Saved: Yes Events: Uneventful and Well Tolerated (10cc 0.5% ropivacaine with 10cc NS)
[2021-01-04 10:05] VITALS: TEMP 97.1
[2021-01-04] MEDS ORDERED: ROPIVACAINE 0.2%-NS ON-Q PUMP 1,090 MG, EMPTY PAIN BALL 1 EACH MISCELLANE PRN (10:13)
--- NOTE | 2021-01-04 10:51 | XR ---
EXAMINATION TYPE: XR knee limited LT DATE OF EXAM: 01/04/2021 COMPARISON: NONE HISTORY: 50-year-old male evaluation for postoperative abnormality in alignment TECHNIQUE: 2 views FINDINGS: Images show placement of left total knee arthroplasty. Both distal femoral and proximal tibial compon ents of the prosthesis are well seated without periprosthetic fracture. Alignment grossly anatomic. A nterior soft tissue swelling with scattered soft tissue air as well as intra-articular air related to recent operation. IMPRESSION: Uncomplicated postoperative appearance left total knee arthroplasty.
[2021-01-04 10:58] VITALS: RESP 18
[2021-01-04 13:58] VITALS: BP 114/64; PULSE 62
== END 2021-01-04 14:29 | disposition home health service (06) ==
LOC: OR 05:58
PROVIDERS: ATTEND Orthopaedic Surgery
DX: M17.12 Unilateral primary osteoarthritis, left knee (principal); I10 Essential (primary) hypertension
CPT/HCPCS: 27447; 97110; 97161; 64999; 64448; 76942; 88300; 73560; C1776; C1713 ×2; J2250; J1100; J0690 ×2; J2405; J3010; J1170 ×2; J2795 ×2; J1885; J2704

== ENCOUNTER 2021-02-02 09:25 | Emergency (ER) | payer OTHER ==
[2021-02-02 09:59] VITALS: BP 154/99; PULSE 80; RESP 18; TEMP 98.2
[2021-02-02] MEDS ORDERED: MORPHINE SULFATE 4 MG/ML SYRINGE IVP STA (14:37)
[2021-02-02] MEDS ORDERED: SODIUM CHLORIDE 0.9% 1,000 ML IV STA (14:37)
[2021-02-02 15:40] LABS: Basophils # (A) 0.1 k/uL (0-0.2); Basophils % (A) 0 %; Eosinophils # (A) 0.2 k/uL (0-0.7); Eosinophils % (A) 1 %; HCT 39.8 % (39.0-53.0); HGB 14.3 gm/dL (13.0-17.5); Lymphocytes # (A) 1.8 k/uL (1.0-4.8); Lymphocytes % (A) 15 %; MCH 29.9 pg (25.0-35.0); Mean Platelet Volume 7.8; Monocytes # (A) 0.6 k/uL (0-1.0); Monocytes % (A) 5 %; Neutrophils # (A) 9.5 k/uL (1.3-7.7); Neutrophils % (A) 78 %; Platelet Count 309 k/uL (150-450); RBC 4.79 m/uL (4.30-5.90); RDW 12.2 % (11.5-15.5); WBC 12.1 k/uL (3.8-10.6)
[2021-02-02 15:48] LABS: Appearance,Urine Clear (Clear); Bilirubin,Urine Negative (Negative); Blood,Urine Negative (Negative); Color,Urine Yellow; Glucose,Urine (UA) Negative (Negative); Ketones,Urine Negative (Negative); Leukocyte Esterase,Urine Negative (Negative); Nitrite,Urine Negative (Negative); PH, Urine 5.5 (5.0-8.0); Protein,Urine Negative (Negative); Specific Gravity,Urine 1.015 (1.001-1.035); Urobilinogen,Urine <2.0 mg/dL (<2.0)
[2021-02-02 15:50] LABS: ALT 51 U/L (4-49); AST 41 U/L (17-59); African American GFR (CKD) >90 (>60 ml/min/1.73 sqM); Albumin 4.5 g/dL (3.5-5.0); Alkaline Phosphatase 106 U/L (38-126); Amylase 46 U/L (30-110); Anion Gap 10 mmol/L; Blood Urea Nitrogen 11 mg/dL (9-20); Calcium 9.8 mg/dL (8.4-10.2); Carbon Dioxide 25 mmol/L (22-30); Chloride 105 mmol/L (98-107); Glucose 93 mg/dL (74-99); Lipase 81 U/L (23-300); Non-African American GFR(CKD) >90 (>60 ml/min/1.73 sqM); Potassium 4.3 mmol/L (3.5-5.1); Sodium 140 mmol/L (137-145); Total Bilirubin 0.6 mg/dL (0.2-1.3)
[2021-02-02 16:04] LABS: MCV 83.2 fL (80.0-100.0)
--- NOTE | 2021-02-02 16:23 | CT ---
EXAMINATION TYPE: CT abdomen pelvis w con DATE OF EXAM: 02/02/2021 COMPARISON: CT abdomen and pelvis June 22, 2009 HISTORY: LLQ pain for [address] DLP: 1249.2 mGycm, Automated Exposure Control for Dose Reduction was Utilized. CONTRAST: CT scan of the abdomen and pelvis is performed without oral but with IV Contrast, patient injected wi th 100 mL of Isovue 300. FINDINGS: LUNG BASES: There is stable 6 mm left basilar calcified nodule or granuloma. LIVER/GB: Gallbladder now surgically absent. Liver is diffusely low dense suggesting diffuse fatty in filtration PANCREAS: No significant abnormality is seen. SPLEEN: Single calcification in the spleen redemonstrated axial image 27. ADRENALS: No significant abnormality is seen. KIDNEYS: Symmetric cortical medullary uptake and excretion without hydronephrosis seen bilaterally. R etroaortic left renal vein which is normal variant. BOWEL: Suboptimal evaluation of bowel without enteric contrast. Normal appearing appendix from the ce cum right upper pelvis. A few diverticula in the left and sigmoid colon. No convincing CT evidence fo r acute diverticulitis. No suspicious small or large bowel dilatation. Air-fluid level in mildly prom inent distal ileal loop right pelvis. PROSTATE/SEMINAL VESICLES: Prostate gland measures upper limits of normal in size. LYMPH NODES: No greater than 1cm abdominal or pelvic lymph nodes are appreciated. A few prominent bu t subcentimeter left iliac chain lymph nodes are present. OSSEOUS STRUCTURES: Moderate to severe disc space narrowing lumbosacral junction.. OTHER: No significant additional abnormality is seen. IMPRESSION: Some distal colonic diverticula. No convincing CT evidence for acute diverticulitis. Over all nonspecific but felt to be nonobstructive bowel gas pattern. No acute findings clearly evident.
--- NOTE | 2021-02-02 16:30 | ED ---
Abdominal Pain HPI - General Chief Complaint: Abdominal Pain Stated Complaint: Abd Pain/High BP Time Seen by Provider: 02/02/21 14:29 Source: patient, RN notes reviewed Mode of arrival: ambulatory Limitations: no limitations - History of Present Illness Initial Comments: 1-year-old male complaining of left lower abdominal pain for the past few days. Patient denied any history of diverticulitis, kidney stones or hernias. Patient recently had knee replaced with surgery. Patient notes that he came in today for evaluation of possible abdominal issues. Patient denied any change in bowel habits. He denied any nausea vomiting. He denied chest pain shortness of breath headache diarrhea constipation fever fatigue chills. He denied any aggravating or alleviating factors. He notes his pain is approximate a 6 out of 10 at this time. - Related Data Home Medications Medication Instructions Recorded Confirmed Acetaminophen [Tylenol Extra 500 - 1,000 mg PO Q6H PRN 02/02/21 02/02/21 Strength] HYDROcodone/APAP 7.5-325MG [[place] 1 tab PO Q6HR PRN 02/02/21 02/02/21 7.5] Ibuprofen [Motrin Ib] 400 mg PO BID PRN 02/02/21 02/02/21 Losartan/Hydrochlorothiazide 1 tab PO DAILY 02/02/21 02/02/21 [Losartan-Hctz 100-12.5 mg Tab] Allergies Allergy/AdvReac Type Severity Reaction Status Date / Time hay AdvReac Itching Uncoded 02/02/21 15:55 Review of Systems ROS Statement: Those systems with pertinent positive or pertinent negative responses have been documented in the HPI. ROS Other: All systems not noted in ROS Statement are negative. Past Medical History Past Medical History: Hypertension, Osteoarthritis (OA) Additional Past Medical History / Comment(s): hiatal hernia, History of Any Multi-Drug Resistant Organisms: None Reported Past Surgical History: Cholecystectomy, Orthopedic Surgery, Tonsillectomy Additional Past Surgical History / Comment(s): WISDOM TEETH. ARTHROSCOPY bilateral knees Past Anesthesia/Blood Transfusion Reactions: No Reported Reaction Past Psychological History: No Psychological Hx Reported Smoking Status: Never smoker Past Alcohol Use History: None Reported Past Drug Use History: None Reported - Past Family History Mother Family Medical History: No Reported History General Exam Limitations: no limitations General appearance: alert, in no apparent distress Head exam: Present: atraumatic, normocephalic, normal inspection Eye exam: Present: normal appearance, PERRL, EOMI. Absent: scleral icterus, conjunctival injection, periorbital swelling ENT exam: Present: normal exam, mucous membranes moist Neck exam: Present: normal inspection Respiratory exam: Present: normal lung sounds bilaterally. Absent: respiratory distress, wheezes, rales, rhonchi, stridor Cardiovascular Exam: Present: regular rate, normal rhythm, normal heart sounds. Absent: systolic murmur, diastolic murmur, rubs, gallop, clicks GI/Abdominal exam: Present: soft, tenderness (Mild in the left lower quadrant.), normal bowel sounds. Absent: distended, guarding, rebound, rigid Extremities exam: Present: normal inspection, full ROM, normal capillary refill. Absent: tenderness, pedal edema, joint swelling, calf tenderness Neurological exam: Present: alert, oriented X3 Psychiatric exam: Present: normal affect, normal mood Skin exam: Present: warm, dry, intact, normal color. Absent: rash Course Vital Signs 02/02/21 09:54 Temperature 98.2 F Pulse Rate 80 Respiratory 18 Rate Blood Pressure 154/99 O2 Sat by Pulse 97 Oximetry Medical Decision Making - Medical Decision Making 50-year-old male complaining of left lower quadrant pain. Labs, 1 L normal saline, 4 mg of morphine, CT of the abdomen and pelvis ordered. Labs unremarkable, mild leukocytosis at 12.1. Computed tomography scan negative for any acute process, several diverticula a but no diverticulitis. Case discussed with Dr. Henning, patient can discharge home with follow-up to GI specialist. - Lab Data Result diagrams: 02/02/21 15:36 02/02/21 15:36 Lab Results 02/02/21 02/02/21 02/02/21 Range/Units 15:36 15:36 15:36 WBC 12.1 H (3.8-10.6) k/uL RBC 4.79 (4.30-5.90) m/uL Hgb 14.3 (13.0-17.5) gm/dL Hct 39.8 (39.0-53.0) % MCV 83.2 D (80.0-100.0) fL MCH 29.9 (25.0-35.0) pg MCHC 36.0 (31.0-37.0) g/dL RDW 12.2 (11.5-15.5) % Plt Count 309 (150-450) k/uL MPV 7.8 Neutrophils % 78 % Lymphocytes % 15 % Monocytes % 5 % Eosinophils % 1 % Basophils % 0 % Neutrophils # 9.5 H (1.3-7.7) k/uL Lymphocytes # 1.8 (1.0-4.8) k/uL Monocytes # 0.6 (0-1.0) k/uL Eosinophils # 0.2 (0-0.7) k/uL Basophils # 0.1 (0-0.2) k/uL Sodium 140 (137-145) mmol/L Potassium 4.3 (3.5-5.1) mmol/L Chloride 105 (98-107) mmol/L Carbon Dioxide 25 (22-30) mmol/L Anion Gap 10 mmol/L BUN 11 (9-20) mg/dL Creatinine 0.94 (0.66-1.25) mg/dL Est GFR (CKD-EPI)AfAm >90 (>60 ml/min/1.73 sqM) Est GFR (CKD-EPI)NonAf >90 (>60 ml/min/1.73 sqM) Glucose 93 (74-99) mg/dL Plasma Lactic Acid Frederick (0.7-2.0) mmol/L Calcium 9.8 (8.4-10.2) mg/dL Total Bilirubin 0.6 (0.2-1.3) mg/dL AST 41 (17-59) U/L ALT 51 H (4-49) U/L Alkaline Phosphatase 106 (38-126) U/L Total Protein 8.0 (6.3-8.2) g/dL Albumin 4.5 (3.5-5.0) g/dL Amylase 46 (30-110) U/L Lipase 81 (23-300) U/L Urine Color Yellow Urine Appearance Clear (Clear) Urine pH 5.5 (5.0-8.0) Ur Specific Clarence 1.015 (1.001-1.035) Urine Protein Negative (Negative) Urine Glucose (UA) Negative (Negative) Urine Ketones Negative (Negative) Urine Blood Negative (Negative) Urine Nitrite Negative (Negative) Urine Bilirubin Negative (Negative) Urine Urobilinogen <2.0 (<2.0) mg/dL Ur Leukocyte Esterase Negative (Negative) 02/02/21 Range/Units 15:36 WBC (3.8-10.6) k/uL RBC (4.30-5.90) m/uL Hgb (13.0-17.5) gm/dL Hct (39.0-53.0) % MCV (80.0-100.0) fL MCH (25.0-35.0) pg MCHC (31.0-37.0) g/dL RDW (11.5-15.5) % Plt Count (150-450) k/uL MPV Neutrophils % % Lymphocytes % % Monocytes % % Eosinophils % % Basophils % % Neutrophils # (1.3-7.7) k/uL Lymphocytes # (1.0-4.8) k/uL Monocytes # (0-1.0) k/uL Eosinophils # (0-0.7) k/uL Basophils # (0-0.2) k/uL Sodium (137-145) mmol/L Potassium (3.5-5.1) mmol/L Chloride (98-107) mmol/L Carbon Dioxide (22-30) mmol/L Anion Gap mmol/L BUN (9-20) mg/dL Creatinine (0.66-1.25) mg/dL Est GFR (CKD-EPI)AfAm (>60 ml/min/1.73 sqM) Est GFR (CKD-EPI)NonAf (>60 ml/min/1.73 sqM) Glucose (74-99) mg/dL Plasma Lactic Acid Frederick 1.2 (0.7-2.0) mmol/L Calcium (8.4-10.2) mg/dL Total Bilirubin (0.2-1.3) mg/dL AST (17-59) U/L ALT (4-49) U/L Alkaline Phosphatase (38-126) U/L Total Protein (6.3-8.2) g/dL Albumin (3.5-5.0) g/dL Amylase (30-110) U/L Lipase (23-300) U/L Urine Color Urine Appearance (Clear) Urine pH (5.0-8.0) Ur Specific Clarence (1.001-1.035) Urine Protein (Negative) Urine Glucose (UA) (Negative) Urine Ketones (Negative) Urine Blood (Negative) Urine Nitrite (Negative) Urine Bilirubin (Negative) Urine Urobilinogen (<2.0) mg/dL Ur Leukocyte Esterase (Negative) - Radiology Data Radiology results: report reviewed, image reviewed CT of the abdomen and pelvis: Some distal colonic diverticula. No convincing CT evidence for acute diverticulitis. Overall nonspecific but felt to be nonobstructive bowel gas pattern no acute findings clearly evident. Disposition Clinical Impression: Abdominal pain Disposition: HOME SELF-CARE Condition: Stable Instructions (If sedation given, give patient instructions): Abdominal Pain (ED) Additional Instructions: Please return to the Emergency Department if symptoms worsen or any other concerns. Follow-up with primary care 1-2 days. Follow-up with GI specialist when convenient. Increase fluids and dietary fiber to help with any constipation related to narcotic use pain Is patient prescribed a controlled substance at d/c from ED?: No Referrals: Zackery Rodriguez DO [Primary Care Provider] - 1-2 days Jacey Disla MD [STAFF PHYSICIAN] - 1-2 days Time of Disposition: 16:30
== END 2021-02-02 16:58 | disposition home or self-care (01) ==
LOC: EC 09:25
DX: R10.32 Left lower quadrant pain (principal); I10 Essential (primary) hypertension; M19.90 Unspecified osteoarthritis, unspecified site; Z87.442 Personal history of urinary calculi; Z90.49 Acquired absence of other specified parts of digestive tract
CPT/HCPCS: 99284; 96374; 96361; 36415; 80053; 82150; 83605; 83690; 85025; 81003; 74177; J2270; Q9967

== ENCOUNTER → 2021-12-03 | Outpatient (CLI) | payer OTHER ==
--- NOTE | 2021-12-03 16:04 | MR ---
EXAMINATION TYPE: MR knee RT wo con DATE OF EXAM: 12/03/2021 COMPARISON: Outside right knee x-ray November 10, 2021 HISTORY: PAIN IN RIGHT KNEE on and off for a few months with history of prior running injury and meni scal repair in 2014. TECHNIQUE: Multiplanar, multisequence imaging of the right knee is performed without IV contrast. FINDINGS: MEDIAL MENISCUS: Truncated appearance to the medial meniscus suspected product of prior meniscectomy. Some increased signal towards the central body seen best on coronal images is noted. LATERAL MENISCUS: Anterior and posterior horns are intact without tear. CRUCIATE LIGAMENTS: The anterior and posterior cruciate ligaments are intact and unremarkable. COLLATERAL LIGAMENTS: The medial collateral ligament and lateral collateral ligament complex are inta ct and unremarkable. EXTENSOR MECHANISM: Visualized quadriceps and patellar tendons are intact. EFFUSION: Small to borderline moderate size suprapatellar joint effusion. POPLITEAL CYST: No popliteal/lerma cyst. TRICOMPARTMENT SPACES: Moderate to severe narrowing medial tibiofemoral compartment with moderate spu rring. [id number] spurring lateral aspect distal lateral femoral condyle. Mild narrowing with m ild to moderate spurring patellofemoral compartment. CARTILAGE: Significant cartilaginous loss medial tibial femoral compartment with full-thickness loss identified. BONE MARROW SIGNAL: Heterogeneous diminished T1 and increased T2 signal involving areas of the distal medial femoral condyle and medial tibial plateau noted. Suspect reactive edema. OTHER: No additional significant abnormality is appreciated. IMPRESSION: 1. Fairly advanced degenerative changes in the right knee in the medial tibiofemoral compartment note d as detailed above. 2. Partial meniscectomy changes medial meniscus identified, at least intrasubstance tear in the remn ant medial meniscus is felt present. 3. Small to borderline moderate sized suprapatellar joint effusion.
== END | disposition home or self-care (01) ==
LOC: RADMRIMAIN 12:56
PROVIDERS: ATTEND Orthopaedic Surgery
DX: M17.11 Unilateral primary osteoarthritis, right knee (principal)

== ENCOUNTER → 2024-04-09 | Outpatient (CLI) | payer BC ==
[2024-04-09 19:10] LABS: Basophils # (A) 0.06 X 10*3/uL (0.00-0.10); Basophils % (A) 0.7 %; Eosinophils % (A) 1.1 %; HCT 47.4 % (39.6-50.0); HGB 15.5 g/dL (13.0-17.0); Lymphocytes # (A) 2.11 X 10*3/uL (0.90-5.00); Lymphocytes % (A) 23.7 %; MCH 29.2 pg (27.0-32.0); MCHC 32.7 g/dL (32.0-37.0); MCV 89.3 FL (80.0-97.0); Mean Platelet Volume 11.7 FL (9.5-12.2); Monocytes # (A) 0.81 X 10*3/uL (0.20-1.00); Monocytes % (A) 9.1 %; NRBC Per 100 WBC 0 X 10*3/uL (0.00-0.01); Neutrophils # (A) 5.79 X 10*3/uL (1.80-7.70); Neutrophils % (A) 65.1 %; Platelet Count 276 X 10*3/uL (140-440); RBC 5.31 X 10*6/uL (4.40-5.60); RDW 12.9 % (11.5-14.5)
[2024-04-09 19:13] LABS: BUN/Creat Ratio 6.42 Ratio (12.00-20.00); Blood Urea Nitrogen 7.7 mg/dL (9.0-27.0); Carbon Dioxide 25.6 mmol/L (21.6-31.8); Chloride 104 mmol/L (96-109); Glucose 102 mg/dL (70-110); Potassium 4.5 mmol/L (3.5-5.5); Sodium 140 mmol/L (135-145)
[2024-04-09 19:34] LABS: INR <0.93 sec (0.93-1.11); Prothrombin Time 10.4 sec (9.9-11.9)
== END | disposition home or self-care (01) ==
LOC: LABPAT 10:45
PROVIDERS: ATTEND Orthopaedic Surgery
DX: Z01.818 Encounter for other preprocedural examination (principal); Z22.322 Carrier or suspected carrier of Methicillin resistant Staphylococcus aureus; M17.11 Unilateral primary osteoarthritis, right knee
CPT/HCPCS: 36415; 80048; 85025; 85610; 87070; 93005

== ENCOUNTER → 2024-05-20 | Outpatient (CLI) | payer BC ==
--- NOTE | 2024-05-20 09:59 | XR ---
EXAMINATION TYPE: XR lumbar spine 2 or 3V DATE OF EXAM: 05/20/2024 9:29 AM COMPARISON: None. CLINICAL INDICATION: Male, 54 years old with history of M54.10 RADICULOPATHY, SITE UNSPECIFIED, TECHNIQUE: 3 views of the lumbar spine are submitted. FINDINGS: There are 5 lumbar type vertebral bodies identified. The lumbar spine shows satisfactory alignment without evidence of acute fracture or dislocation. Vertebral body heights are within normal limits. Severe degenerative disc space narrowing L5-S1 with facet joint arthropathy is as well as ve ntral and dorsal spondylosis. The overlying soft tissue appears unremarkable. IMPRESSION: No acute fracture or dislocation is seen in the lumbar spine.ICD 10 NO FRACTURE, INITIAL EVALUATION [facility], , 05/20/2024 9:57 AM
== END | disposition home or self-care (01) ==
LOC: LABWHC1 09:11
PROVIDERS: ATTEND Family Medicine
DX: M54.10 Radiculopathy, site unspecified (principal)
CPT/HCPCS: 72100